=== PATIENT | male | born 1990 | race Caucasian/White ===

== ENCOUNTER 2017-01-14 10:10 | Emergency (ER) | payer SELFPAY ==
[~2017-01-14] VITALS: Ht 175.3 cm; Wt 65.8 kg
[2017-01-14 10:51] LABS: CARBON DIOXIDE 22 mmol/L (21-32); CHLORIDE 100 mmol/L (98-107); CREATININE 1.3 mg/dL (0.6-1.3); GLUCOSE 79 mg/dL (74-106); POTASSIUM 3.5 mmol/L (3.5-5.1); UREA NITROGEN, BLOOD 26 mg/dL (7-18)
[2017-01-14 10:54] LABS: ETHANOL < 3 MG/DL (0-0)
[2017-01-14 10:57] LABS: ALANINE AMINOTRANSFERASE 98 U/L (16-63); ALKALINE PHOSPHATASE 51 U/L (50-136); ASPARTATE AMINOTRANSFERASE 169 U/L (15-37); BILIRUBIN,DIRECT 0.2 mg/dL (0.0-0.2); TOTAL PROTEIN, SERUM 7.6 g/dL (6.4-8.2)
[2017-01-14 11:03] LABS: ACETAMINOPHEN < 2.0 ug/mL (10-30)
[2017-01-14 11:16] LABS: BASOPHILS % (AUTO) 0.3 % (0.0-2.0); EOSINOPHILS % (AUTO) 0.1 % (0.0-7.0); HEMATOCRIT 42.3 % (40-50); HEMOGLOBIN 14.1 G/DL (14.0-18.0); LYMPHOCYTES # (AUTO) 1.3 K/UL (0.8-4.8); LYMPHOCYTES % (AUTO) 10.3 % (20.5-51.5); MEAN CORPUSCULAR HEMOGLOBIN 30.4 UUG (27.0-31.0); MEAN CORPUSCULAR HGB CONC 33 g/dL (32.0-37.0); MEAN CORPUSCULAR VOLUME 91.2 FL (82.0-92.0); MONOCYTES % (AUTO) 7.4 % (0.0-11.0); NEUTROPHILS # (AUTO) 10.6 K/UL (1.8-8.9); NEUTROPHILS % (AUTO) 81.9 % (38.5-71.5); PLATELET COUNT (AUTO) 318 K/UL (150-450); RED BLOOD CELL COUNT(AUTO) 4.64 MIL/UL (4.7-6.1); WHITE BLOOD COUNT (AUTO) 12.9 K/UL (4.0-11.2)
[2017-01-14] MEDS ORDERED: LORAZEPAM 2 MG/1 ML VIAL IM ONE (12:00)
[2017-01-14] MEDS ORDERED: HALOPERIDOL LACTATE 5 MG/1 ML VIAL IM ONE (12:00)
[2017-01-14] MEDS ORDERED: diphenhydrAMINE 50 MG/1 ML VIAL IM ONE (12:00)
--- NOTE | 2017-01-14 12:00 | NUR ---
Pt agitated, getting out of gurney, rambling and delusional. Dr. Etienne notified, security at bedside for safety. Pt medicated as ordered.
[2017-01-14] MEDS ORDERED: diphenhydrAMINE 50 MG/1 ML VIAL ONE (12:10)
[2017-01-14] MEDS ORDERED: HALOPERIDOL LACTATE 5 MG/1 ML VIAL ONE (12:10)
[2017-01-14] MEDS ORDERED: LORAZEPAM 2 MG/1 ML VIAL ONE (12:11)
--- NOTE | 2017-01-14 12:30 | NUR ---
Pt resting in gurney with eyes closed and no s/s acute distress noted at this time.
--- NOTE | 2017-01-14 12:35 | NUR ---
Pt to CT via katie with NAD noted.
[2017-01-14 13:23] LABS: BAND % (MANUAL) 4 % (0-10); BASOPHILS % (MANUAL) 1 % (0-2); LYMPHOCYTES % (MANUAL) 12 % (20-40); MONOCYTES % (MANUAL) 5 % (2-10); NEUTROPHILS % (MANUAL) 78 % (42-75)
--- NOTE | 2017-01-14 13:30 | NUR ---
Pt resting with no s/s of acute distress noted.
--- NOTE | 2017-01-14 14:00 | NUR ---
Pt to CT via SIL wilson noted.
--- NOTE | 2017-01-14 14:11 | NUR ---
Pt back from CT, NAD noted.
[2017-01-14 14:57] LABS: *BLOOD, URINE 3+ (NEGATIVE); *COLOR,URINE YELLOW (YELLOW); *KETONES,URINE 3+ (NEGATIVE); *PROTEIN,URINE 2+ (NEGATIVE); *UROBILINOGEN,URINE 0.2 E.U./dl (NORMAL); LEUKOCYTE ESTERASE ,URINE NEGATIVE (NEGATIVE); NITRITE, URINE NEGATIVE (NEGATIVE); PH,URINE 5.5 (5.0-8.0); UGLUCOSE NEGATIVE (NEGATIVE)
[2017-01-14 15:24] LABS: *BILIRUBIN,URIN NEGATIVE (NEGATIVE); *CLARITY,URINE HAZY (CLEAR)
[2017-01-14 15:25] LABS: BACTERIA,URINE FEW /HPF (NONE SEEN); RBC,URINE 20-50 /HPF (0-3); SQUAMOUS EPITHELIAL CELL,UR FEW /HPF (NONE SEEN); URINE AMORPHOUS URATE MODERATE /HPF
--- NOTE | 2017-01-14 15:45 | NUR ---
Pt sleeping, NAD noted.
--- NOTE | 2017-01-14 18:00 | NUR ---
Klaus Arana arrived and attempted to eval pt but the pt was too sleepy. Per Klaus he will come back later and try again.
[2017-01-14 18:19] LABS: *AMPHETAMINE, URINE NEGATIVE (NEGATIVE); *BARBITURATE, URINE NEGATIVE (NEGATIVE); *CANNABINOID, URINE POSITIVE (NEGATIVE); *COCCAINE, URINE NEGATIVE (NEGATIVE); *OPIATE, URINE NEGATIVE (NEGATIVE); *PHENCYCLIDINE SCREEN,URINE NEGATIVE (NEGATIVE)
--- NOTE | 2017-01-14 19:00 | NUR ---
Report given to carpet jack.
--- NOTE | 2017-01-14 19:04 | NUR ---
Received report from SHANIKA Jeong. Assumed care of pt at this time. Pt resting in position of comfort for self with eyes closed, resp even and unlabored. No obvious signs of distress. Awaiting evaluation of crisis team was unable at first attempt due to pt sedation.
--- NOTE | 2017-01-14 19:45 | NUR ---
Pt easily woke for vs. Answering question appropriately. Sts "the voices told me to run in the street".
--- NOTE | 2017-01-14 21:40 | NUR ---
Dr. Khan spoke with Klaus (psych crisis team) Pt stable for discharge per Dr. Khan. Pt easily woken and conversing appropriately. Pt given ACI. Pt verbalized understanding of dc instructions. Pt kept crawling back on gurney to go back to sleep, not wanting to exit the ER even when he stated to Dr. Khan and myself that he had a place to go. Pt was calmly escorted out of ER by security. Pt ambulated with a steady gait, drinking the ice water given to him alert and oriented
[2017-01-14 22:15] VITALS: BP 120/68
== END 2017-01-14 21:40 | disposition home or self-care (01) ==
LOC: ER 10:10
DX: S30.1XXA Contusion of abdominal wall, initial encounter (principal); F23 Brief psychotic disorder; R31.9 Hematuria, unspecified; X58.XXXA Exposure to other specified factors, initial encounter; Y93.89 Activity, other specified; Y92.9 Unspecified place or not applicable; Y99.9 Unspecified external cause status
CPT/HCPCS: 36415; 70030-TC; 70450; 71010; 72100; 72125; 80307; 85025; 85730; A4663; G0480; G0480-TC; J1200; J1630; J2060